=== PATIENT | female | born 1950 | race Caucasian/White ===

== ENCOUNTER 2017-02-08 09:01 | Observation (INO) | payer MEDICARE, OTHER ==
[2017-02-08] MEDS ORDERED: KETOROLAC TROMETHAMINE 30 MG/ML VIAL ONE (09:15)
[2017-02-08] MEDS ORDERED: KETOROLAC TROMETHAMINE 30 MG/ML VIAL IV ONE (09:15)
[2017-02-08] MEDS ORDERED: NORMAL SALINE 1,000 ML IV ONE (09:15)
[2017-02-08 09:27] LABS: Hematocrit 43.7 % (37.0-47.0); Hemoglobin 14.4 gm/dL (12.5-16.0); Mean Cell Volume 86.9 fl (78-100); Mean Corpuscular Hemoglobin 28.6 pg (27-31); Mean Platelet Volume 9.5 fl (6.0-9.5); Platelet Count 329 K/mm3 (150-450); Red Blood Count 5.03 M/mm3 (4.2-5.4); Red Cell Distribution Width 12.6 % (11.5-14.0); White Blood Count 9.4 K/mm3 (4.0-10.5)
[2017-02-08 09:33] LABS: Urine Bilirubin 1 mg/dl (NEGATIVE); Urine Blood 250 /ul (NEGATIVE); Urine Ketone Negative (NEGATIVE); Urine Nitrite Negative (NEGATIVE); Urine Protein 100 mg/dL (NEGATIVE); Urine Specific Gravity >=1.030 SP.GR. (1.005-1.010); Urine Urobilinogen Normal (NORMAL)
[2017-02-08] MEDS ORDERED: ONDANSETRON HCL/PF 2 MG/ML VIAL IV ONE ×2 (09:33→10:44)
[2017-02-08 09:40] LABS: Urine Amorphous Sediment Moderate - 2+ (NONE-FEW); Urine Appearance Cloudy; Urine Bacteria TRACE; Urine Color Dark Yellow; Urine RBC >50 /hpf (0-5); Urine WBC 0-5 /hpf (0-5)
[2017-02-08 09:51] LABS: Albumin * 3.8 gm/dl (3.4-5.0); Anion Gap 15.4 mmol/L (6.8-13.8); BUN/Creatinine Ratio 26.7 (9.0-21.6); Bilirubin, Total 0.6 mg/dL (0.0-1.1); Ca. Corrected For Albumin 8.9 mg/dL (8.4-10.2); Calcium * 9.1 mg/dL (7.9-10.9); Carbon Dioxide 24.9 mmol/L (24-32.6); Potassium 4.3 mmol/L (3.4-4.6); Total Protein 7.7 gm/dL (6.2-8.2)
[2017-02-08] MEDS ORDERED: HYDROmorphone HCL 1 MG/ML DISP.SYRIN IV ONE (10:27)
[2017-02-08] MEDS ORDERED: TAMSULOSIN HCL 0.4 MG CAP.SR.24H PO ONE ×2 (10:27→10:39)
[2017-02-08] MEDS ORDERED: HYDROmorphone HCL 1 MG/ML DISP.SYRIN ONE (10:39)
--- NOTE | 2017-02-08 10:43 | ERNOTE ---
Abdominal HPI - General Chief Complaint: Abdominal Pain Time Seen by Provider: 02/08/17 09:32 Source: patient Exam Limitations: no limitations - Immun/Allergies/Home Medications Immunizatons: IMMUNIZATION HX Immunizations Up to Date Yes History of Influenza Vaccine Yes Hx Pneumococcal Vaccination No Allergies/Adverse Reactions: Allergies No Known Allergies Allergy (Verified 09/24/13 07:07) Home Medications: HOME MEDICATIONS Citalopram Hydrobromide [Celexa] 20 mg PO DAILY 12/05/12 [Last Taken 01/12/17] LORazepam [Ativan] 0.5 mg PO Q6H PRN 12/05/12 [Last Taken Unknown] Levothyroxine Sodium [Tirosint] 50 mcg PO DAILY 12/05/12 [Last Taken 12/05/12] Zolpidem Tartrate [Ambien] 10 mg PO HS 12/05/12 [Last Taken 01/12/17] - History of Present Illness Narrative: Patient presents from her doctor's office complaining of severe right flank and right lower quadrant abdominal pain. She states that the pain started last night is extremely colicky in nature and was initially nauseated and is now just turned into [id number] pain. At this juncture there was still some severe component when she came over from her physician's office. Timing: constant Quality: severe Activities at Onset: none Associated Symptoms: Present: nausea Prior Abdominal Problems: Present: none Prior Treatment: Present: recently seen, treated by physician Review of Systems - Review of Systems Constitutional: Present: See HPI EYE: Present: no symptoms reported ENT: Present: no symptoms reported Respiratory: Present: no symptoms reported Cardiology: Present: no symptoms reported Gastrointestinal/Abdominal: Present: nausea Genitourinary: Present: pain - principally in the right flank radiating down into the right lower abdomen Musculoskeletal: Present: no symptoms reported Skin: Present: no symptoms reported Neurological: Present: no symptoms reported Endocrine: Present: no symptoms reported Hematologic/Lymphatic: Present: no symptoms reported Psych: Present: no symptoms reported - Patient's Past Medical History Patient History - Medical: Anxiety, Depression, GERD Patient History - Cardiac/Respiratory: No pertinent hx Patient History - Cancer: No Hx of Cancer Patient History - Surgical Procedures: Cholecystectomy, Colonoscopy, EGD, Hysterectomy, Orthopedic Patient History - Other: None LMP (females 10-50): Menopausal - Family History Mother Family History - Medical: Family History - Cardiac/Respiratory: CHF, CVA/Stroke Family History - Cancer: No pertinent family hx Father Family History - Medical: Family History - Cardiac/Respiratory: Coronary Heart Disease, CHF, Myocardial Infarction Family History - Cancer: No pertinent family hx - Social History Living Situations: spouse Abuse History: No History of abuse Psych History: Hx of Anxiety, Hx of Depression, Current tx/ever been on anti- depressants or anti-anxiety meds Smoking Status: Never smoker Alcohol Use: none Drug Use: none - Immunizations Immunizations Up to Date: Yes Hx Pneumococcal Vaccination: No History of Influenza Vaccine: Yes Physical Exam - Physical Exam General Appearance: Present: wd/wn, alert, severe distress Head Exam: Present: normal inspection Eye Exam: Normal inspection: bilateral, PERRL: bilateral Ears, Nose, Throat: Present: normal ENT inspection, H, normal pharynx Neck: Present: normal inspection, nontender Respiratory: Present: no respiratory distress, normal breath sounds, no accessory muscle use, chest nontender, lungs clear Cardiovascular/Chest: Present: regular rate, rhythm, no murmur, normal peripheral pulses Gastrointestinal/Abdominal: Present: normal bowel sounds, nontender, nondistended, soft, no organomegaly Rectal Exam: Present: deferred Back Exam: Present: normal range of motion, CVA tenderness (R) Extremity Exam: Present: normal inspection, non-tender, no edema, normal range of motion Neurological Exam: Present: alert, oriented, normal mood/affect Skin Exam: Present: normal color, warm/dry Lymphatic Exam: Present: no adenopathy ED Progress - Results and Orders Patient's Lab Results:: I have reviewed the patient's lab results. - Vital Signs Patient's Vital Signs:: I have reviewed the patient's vital signs. Vital Signs: Vital Signs 02/08/17 09:08 Temperature 36.6 C Pulse Rate 73 Respiratory 22 H Rate Blood Pressure 213/96 O2 Sat by Pulse 95 Oximetry - CT/Ultrasound CT/Ultrasound Narrative: CT of the abdomen and pelvis was reviewed by me - Progress/Reassessment Chief Complaint: Abdominal Pain Plan - Plan Plan: We're having considerable difficulty controlling the patient's pain and is highly unlikely the patient is going to pass her kidney stone. I spoke with the on-call urologist and he suggested we put the patient in make sure that she is hydrated, pain management, nausea vomiting control and he will take her to surgery in the morning to remove the obstructing kidney stone. Departure - Departure Clinical Impression: Kidney stone on right side Disposition: [facility] Condition: Fair Referrals: Ammy Raymond MD [Primary Care Provider] -
[2017-02-08] MEDS ORDERED: ONDANSETRON HCL/PF 2 MG/ML VIAL ONE (10:44)
[2017-02-08] MEDS ORDERED: HYDROcodone/ACETAMINOPHEN 1 EACH TABLET PO PRN (11:17)
[2017-02-08] MEDS ORDERED: ACETAMINOPHEN 500 MG TABLET PO PRN (11:17)
[2017-02-08] MEDS ORDERED: traMADol HCL 50 MG TABLET PO PRN (11:17)
[2017-02-08] MEDS ORDERED: ONDANSETRON HCL/PF 2 MG/ML VIAL IV PRN (11:17)
[2017-02-08] MEDS ORDERED: LORazepam 0.5 MG TABLET PO PRN (11:19)
[2017-02-08] MEDS ORDERED: CITALOPRAM HYDROBROMIDE 20 MG TABLET PO SCH ×2 (11:30→21:00)
[2017-02-08] MEDS ORDERED: LIDOCAINE HCL 20 ML UDC PO ONE (12:00)
[2017-02-08] MEDS ORDERED: LEVOTHYROXINE SODIUM 50 MCG TABLET PO SCH ×2 (12:00→21:00)
[2017-02-08] MEDS ORDERED: MAG HYDROX/ALUMINUM HYD/SIMETH 30 ML UDC PO ONE (12:00)
[2017-02-08] MEDS: PANTOPRAZOLE SODIUM 40 MG TABLET.EC PO SCH (12:10)
[2017-02-08] MEDS: HYDROmorphone HCL 1 MG/ML DISP.SYRIN IV PRN ×3 (13:12→19:18)
[2017-02-08] MEDS: NORMAL SALINE 1,000 ML IV PRN (13:19)
--- NOTE | 2017-02-08 15:05 | CONS ---
[facility] - General Date of Service: 02/09/17 Narrative: 66-year-old female with hematuria in significant right flank pain discovered on CT to have a large distal right ureteral calculus. Stone is several centimeters from ureteric orifice. Was admitted for IV pain and nausea control. I am consulted for recommendations and possible treatment.she has been nothing by mouth.She has not managed to pass stone overnight. She has had a prior stone which she successfully passed. No prior stone surgery. Location: Right flank Duration: Days Severity/Stage: Was severe now mild to moderate Associated Sx's: Nausea and hematuria Modifying factors: Better with IV pain and nausea medicine Quality: Colicky Past medical history: Includes hypothyroidism, anxiety and depression Past surgical history: Right hip replacement, cholecystectomy, hysterectomy Family history: Noncontributory Social history: Nonsmoker Review of systems: General: No fevers, some nausea, right-sided flank pain as above Lungs: No SOB Heart: No chest pain GI: No diarrhea, no constipation Musculoskeletal: Has chronic back pain at baseline, right-sided hip prosthesis Gynecologic: Prior hysterectomy : Some gross hematuria 14 point review of systems otherwise negative, important positives noted. - History of Present Illness Allergies/Adverse Reactions: Allergies No Known Allergies Allergy (Verified 02/08/17 11:55) Home Medications: Home Medications Medication Instructions Recorded Last Taken Citalopram Hydrobromide [Celexa] 20 mg PO HS 12/05/12 01/12/17 LORazepam [Ativan] 0.5 mg PO Q6H PRN 12/05/12 Unknown Levothyroxine Sodium [Tirosint] 50 mcg PO HS 12/05/12 12/05/12 Zolpidem Tartrate [Ambien] 10 mg PO HS 12/05/12 01/12/17 - Patient's Past Medical History Patient History - Medical: Anxiety, Depression, GERD Patient History - Cardiac/Respiratory: No pertinent hx Patient History - Cancer: No Hx of Cancer Patient History - Surgical Procedures: Cholecystectomy, Colonoscopy, EGD, Hysterectomy, Orthopedic Patient History - Other: None LMP (females 10-50): Menopausal - Family History Mother Family History - Medical: Family History - Cardiac/Respiratory: CHF, CVA/Stroke Family History - Cancer: No pertinent family hx Father Family History - Medical: Family History - Cardiac/Respiratory: Coronary Heart Disease, CHF, Myocardial Infarction Family History - Cancer: No pertinent family hx - Social History Living Situations: home Abuse History: No History of abuse Psych History: Hx of Anxiety, Hx of Depression, Current tx/ever been on anti- depressants or anti-anxiety meds Smoking Status: Never smoker Have you smoked in the past 12 months: No Do you dip or chew tobacco: No Patient requests Smoking Cessation Consult: No Alcohol Use: none Drug Use: none - Immunizations Immunizations Up to Date: Yes Hx Pneumococcal Vaccination: No History of Influenza Vaccine: Yes Procedures ANESTH INJECT-SPIN CANAL (06/20/13) APPLICATION OF SPLINT (10/20/02) CLOSURE SKIN & SUBCUTANEOUS NEC (02/12/99) COLONOSCOPY (10/15/05) DRESSING OF WOUND NEC (11/21/02) ESOPHAGOGASTRODUODENOSCOPY [EGD] W/CLOSED BIOPSY (10/27/11) INJECT STEROID (06/20/13) INJECTION INTO JOINT (09/05/12) LAPAROSCOPIC CHOLECYSTECTOMY (10/27/11) SPINAL CANAL INJECT NEC (06/20/13) TOTAL HIP REPLACEMENT (09/24/13) X-RAY NEC AND NOS (09/05/12) Medications - Medications Current Medications: Current Medications Hydromorphone HCl (Dilaudid) 1 mg IV Q2H PRN PRN Reason: Severe Pain Stop: 03/10/17 11:18 Last Admin: 02/08/17 13:12 Dose: 1 mg Sodium Chloride (Sodium Chloride 0.9%) 1,000 mls @ 75 mls/hr IV .[id number] PRN PRN Reason: HYDRATION Stop: 03/10/17 11:18 Last Admin: 02/08/17 13:19 Dose: 75 mls/hr Pantoprazole Sodium (Protonix) 40 mg PO DAILY@0700 AKSHAT Stop: 03/10/17 11:46 Last Admin: 02/08/17 12:10 Dose: 40 mg Physical Examination - Exam Narrative: General: Nontoxic, moderate distress, not in severe renal colic currently Psych: Alert and oriented x3 HEENT: EOM grossly intact Lungs: Respirations unlabored, clear Abdomen: Obese otherwise benign Neuro: no focal deficits Extremities: Moves all 4 without difficulty Heart: Regular Skin: No obvious rashes Back: No true CVA tenderness, some discomfort on right side to palpation Vital Signs: Vital Signs - Last Taken Temp 97.2 F L 02/08/17 14:24 Pulse 82 02/08/17 14:24 Resp 20 02/08/17 14:24 BP 111/55 02/08/17 14:24 Pulse Ox 93 02/08/17 14:24 O2 Oxygen Delivery Method Room Air - Results and Findings: Narrative: #1 Right stone: Stone fairly large and still has a way to go to get the bladder , probability of passage pretty low. She has been symptomatic despite IV pain and nausea medicine. Options include trial of passage versus surgical intervention. Patient electing to proceed with surgical intervention. Risks including bleeding/infection/injury to ureter including stricture/evulsion /perforation. Typical stent symptoms discussed. Plan is to proceed with formal cystoscopy and retrogrades with attempted right ureteroscopy with laser/basket depending on intraoperative findings. Understands possibility may stent and fight another day if ureter narrow or evidence of infection. Willing to proceed. She has been nothing by mouth. # 2Gross hematuria: Likely related to stone. Obviously we'll inspect bladder at time of stone procedure.
--- NOTE | 2017-02-08 20:43 | HP ---
Chief Complaint - Chief Complaint Date of Service: 02/08/17 Time of Service: 20:42 Chief Complaint: flank pain and hematuria History of Present Illness: 66 years old female adm to the hospital with reports of hematuria and right flank pain radiating to lower abdomen. PMH significant for kidney stones, anxiety, depression, diverticulosis, constipation, insomnia, hypothyroidism and panic attack. Pt stated she was awaken with pain at 2am, she went to her PCP Dr. Raymond and was sent to the ER. Pt stated a year ago she pass kidney stones while in the ER, she was seen by urologist in [place].Since then she had no other episode. Today she denies fever, chills,nausea or vomiting. in ER, CT ABD showed right sided obstructing calculi 5.4mm x7.7mm right distal ureter. model maker urologist plan to see pt tomorrow. will adm for pain control and keep hydrated. Plan of care discussed with pt she verbalized understanding and agrees. - Patient's Past Medical History Patient History - Medical: Anxiety, Depression, GERD, Hypothyroidism Patient History - Cardiac/Respiratory: No pertinent hx Patient History - Cancer: No Hx of Cancer Patient History - Surgical Procedures: Cholecystectomy, Colonoscopy, EGD, Hysterectomy, Total Hip Replacement - right, Orthopedic Patient History - Other: None LMP (females 10-50): Menopausal - Family History Mother Family History - Medical: Family History - Cardiac/Respiratory: CHF, CVA/Stroke Family History - Cancer: No pertinent family hx Father Family History - Medical: Family History - Cardiac/Respiratory: Coronary Heart Disease, CHF, Myocardial Infarction Family History - Cancer: No pertinent family hx - Social History Living Situations: spouse Abuse History: No History of abuse Psych History: Hx of Anxiety, Hx of Depression, Current tx/ever been on anti- depressants or anti-anxiety meds Smoking Status: Never smoker Have you smoked in the past 12 months: No Do you dip or chew tobacco: No Patient requests Smoking Cessation Consult: No Alcohol Use: none Drug Use: none - Immunizations Immunizations Up to Date: Yes Hx Pneumococcal Vaccination: No History of Influenza Vaccine: Yes Review Of Systems (GEN) - Review of Systems Generalized/Overall Review: Present: No Symptoms Reported EENTM: Present: No Symptoms Reported Respiratory: Present: No Symptoms Reported Cardiac: Present: No Symptoms Reported Abdominal: Present: Abdominal Pain - dull pain radiating to lower back Genitourinary: Present: Hematuria, Other - flank pain Musculoskeletal: Present: Back Pain Neurological: Present: Anxiety Skin: Present: No Symptoms Reported Endocrine: Present: No Symptoms Reported Immunizations: IMMUNIZATION HX Immunizations Up to Date Yes History of Influenza Vaccine Yes Hx Pneumococcal Vaccination No Allergies/Adverse Reactions: Allergies Allergy/AdvReac Type Severity Reaction Status Date / Time No Known Allergies Allergy Verified 02/08/17 11:55 Home Medications: HOME MEDICATIONS Citalopram Hydrobromide [Celexa] 20 mg PO HS 12/05/12 [Last Taken 01/12/17] LORazepam [Ativan] 0.5 mg PO Q6H PRN 12/05/12 [Last Taken Unknown] Levothyroxine Sodium [Tirosint] 50 mcg PO HS 12/05/12 [Last Taken 12/05/12] Zolpidem Tartrate [Ambien] 10 mg PO HS 12/05/12 [Last Taken 01/12/17] Exam - Exam Vital Signs: Vital Signs - Last Taken Temp 36.5 C 02/08/17 18:47 Pulse 71 02/08/17 18:47 Resp 20 02/08/17 18:47 BP 122/68 02/08/17 18:47 Pulse Ox 94 02/08/17 18:47 Constitutional: Present: Alert, Oriented x3, Cooperative, Well developed, No distress ENT Exam: Present: normal ENT inspection Eye Exam: bilateral eye: normal inspection Neck: Present: full range of motion Back Exam: Present: normal inspection Breasts: Present: Exam deferred Respiratory: Present: chest non-tender, lungs clear, normal breath sounds, no respiratory distress Cardiovascular/Chest: Present: normal peripheral pulses, regular rate, rhythm, no chest tenderness Peripheral Pulses: dorsalis-pedis (R): 3+, dorsalis-pedis (L): 3+ Abdomen: Present: Normal bowel sounds, soft, nontender, nondistended, no rebound tenderness /Rectal: Present: Other - hematuria Extremity: Present: normal range of motion, non-tender Skin Exam: Present: normal color, warm/dry Lymphatic: Present: no adenopathy Neurologic: Present: oriented x 3 Appearance: Present: appropriate appearance Eye contact: Present: cooperative, good eye contact Thoughts: Present: normal thought pattern Diagnostic Studies: Laboratory Results WBC 9.4 K/mm3 (4.0-10.5) 02/08/17 09: RBC 5.03 M/mm3 (4.2-5.4) 02/08/17 09: Hgb 14.4 gm/dL (12.5-16.0) 02/08/17 09: Hct 43.7 % (37.0-47.0) 02/08/17 09: MCV 86.9 fl (78-100) 02/08/17 09: MCH 28.6 pg (27-31) 02/08/17 09: MCHC 33.0 g/dl (32-36) 02/08/17 09: RDW 12.6 % (11.5-14.0) 02/08/17: Plt Count 329 K/mm3 (150-450) 02/08/17 09: MPV 9.5 fl (6.0-9.5) 02/08/17 09: Immature Gran % (Auto) 0.30 % (0.001-0.429) 02/08/17 09: Immature Gran # (Auto) 0.03 K/mm3 (0.000-0.0310) 02/08/17 09: Neutrophils % 74.0 % (42-75.0) 02/08/17 09: Lymphocytes % 15.0 % (20-51) L 02/08/17 09:23 Monocytes % 7.7 % (0.0-9) 02/08/17 09: Eosinophils % 2.3 % (0.0-3.0) 02/08/17 09: Basophils % 0.7 % (0.0-1.0) 02/08/17 09: Nucleated RBC % 0.0 k/mm3 (0-1) 02/08/17 09: Neutrophils # 7.0 K/mm3 (1.3-6.0) H 02/08/17 09: Lymphocytes # 1.4 k/mm3 (1.5-3.5) L 02/08/17 09: Monocytes # 0.7 k/mm3 (0.0-1.0) 02/08/17 09: Eosinophils # 0.2 k/mm3 (0.0-0.7) 02/08/17 09:23 Absolute Basophils 0.1 k/mm3 (0.0-0.1) 02/08/17 09:23 Sodium 138 mmol/L (132-142) 02/08/17 09:23 Plasma Sodium 138 mmol/L (130-142) 02/08/17 09:23 Potassium 4.3 mmol/L (3.4-4.6) 02/08/17 09:23 Chloride 102 mmol/L (97-106) 02/08/17 09:23 Carbon Dioxide 24.9 mmol/L (24-32.6) 02/08/17 09:23 Anion Gap 15.4 mmol/L (6.8-13.8) H 02/08/17 09:23 BUN 20 mg/dL (3-23) 02/08/17 09:23 Creatinine 0.75 mg/dL (0.4-1.4) 02/08/17 09:23 Est GFR (Non-Af Amer) 82 mL/min (60-130) 02/08/17 09:23 BUN/Creatinine Ratio 26.7 (9.0-21.6) H 02/08/17 09:23 Random Glucose 101 mg/dL (70-110) 02/08/17 09:23 Calcium 9.1 mg/dL (7.9-10.9) 02/08/17 09:23 Calcium Adj for Albumin 8.9 mg/dL (8.4-10.2) 02/08/17 09:23 Total Bilirubin 0.6 mg/dL (0.0-1.1) 02/08/17 09:23 AST 23 U/L (0-48) 02/08/17 09:23 ALT 24 U/L (19-67) 02/08/17 09:23 Alkaline Phosphatase 94 U/L (50-170) 02/08/17 09:23 Total Protein 7.7 gm/dL (6.2-8.2) 02/08/17 09:23 Albumin 3.8 gm/dl (3.4-5.0) 02/08/17 09:23 Urine Color Dark yellow 02/08/17 09:00 Urine Appearance Cloudy 02/08/17 09:00 Urine pH 5.0 pH (5.0-7.0) 02/08/17 09:00 Ur Specific [place] >=1.030 SP.GR. (1.005-1.010) 02/08/17 09:00 Urine Protein 100 mg/dL (NEGATIVE) H 02/08/17 09:00 Urine Glucose (UA) Negative mg/dL (NEGATIVE) 02/08/17 09:00 Urine Ketones Negative mg/dL (NEGATIVE) 02/08/17 09:00 Urine Blood 250 /ul (NEGATIVE) H 02/08/17 09:00 Urine Nitrate Negative (NEGATIVE) 02/08/17 09:00 Urine Bilirubin 1 mg/dl (NEGATIVE) H 02/08/17 09:00 Urine Ictotest Negative (NEGATIVE) 02/08/17 09:00 Prot Sulfosalicylic Acd 3+ mg/dL (0) H 02/08/17 09:00 Urine Urobilinogen Normal EU/dl (NORMAL) 02/08/17 09:00 Ur Leukocyte Esterase 25 /ul (NEGATIVE) H 02/08/17 09:00 Urine RBC >50 /hpf (0-5) H 02/08/17 09:00 Urine WBC 0-5 /hpf (0-5) 02/08/17 09:00 Ur Epithelial Cells None seen /hpf (0-5) 02/08/17 09:00 Amorphous Sediment Moderate - 2+ (NONE-FEW) H 02/08/17 09:00 Urine Bacteria Trace (NONE) 02/08/17 09:00 Urine Culture Comments Culture to follow 02/08/17 09:00 CT ABD: right sided obstructive uropathy calcification 5.4mm x7.7mm right distal ureter Assessment/Plan - Narrative Narrative: Renal calculi: Seen on CT ABD: right sided obstructive uropathy calcification 5.4mm x7.7mm right distal ureter pt with reported history of renal calculi that she pass 1 yrs ago Flomax x 1 given in ER Urine culture pending and Continue with cipro Urologist consulted and will follow. Continue with oral and IV hydration Strain all voided urine IV dilaudid, norco for discomfort. UTI vs pyelonephritis - likely from renal calculi obstruction Continue with cipro Urine culture pending Anxiety May resume home medications PRN Insomnia Resume ambien Code status : full DVT ppx: SCD /TEDs GI ppx:Protonix Time 36 minutes - Assessment/Plan (1) Kidney stone on right side Problem: Acute (2) Anxiety Problem: Chronic
[2017-02-08] MEDS ORDERED: ZOLPIDEM TARTRATE 10 MG TABLET PO SCH (21:00)
[2017-02-09] MEDS: HYDROmorphone HCL 1 MG/ML DISP.SYRIN IV PRN ×2 (01:51→04:58)
[2017-02-09] MEDS: NORMAL SALINE 1,000 ML IV PRN ×2 (01:51→12:50)
[2017-02-09] MEDS: PANTOPRAZOLE SODIUM 40 MG TABLET.EC PO SCH (07:42)
[2017-02-09] MEDS ORDERED: CIPROFLOXACIN IN 5 % DEXTROSE 400 MG/200 ML BAG IV SCH (11:00)
[2017-02-09] MEDS ORDERED: RINGER'S SOLUTION,LACTATED 1,000 ML IV ONE (13:10)
--- NOTE | 2017-02-09 13:50 | OR ---
Operative Report - Dictated Report Narrative: Location: Main OR Anesthesia: General Surgeon: Dr. Sotomayor Preoperative diagnosis: Right distal ureteral stone(s) Postoperative diagnosis: Same Procedure: #1 Cystoscopy with Bilateral retrograde pyelograms #2 Right flexible ureteroscopy with holmium laser lithotripsy 6x26 double j stent Indications: 66-year-old female symptomatic right stone fairly large. Failed conservative measures. Discussed options and elected to proceed with above- mentioned procedure. Description: Consent obtained. Patient brought to the operating room where general endotracheal anesthesia was induced. Placed in the dorsal lithotomy position. Prepped and draped. Timeout taken. Rigid cystoscope introduced into the bladder with ease and quick cystoscopy revealed no tumors, stones or suspicious lesions . Bilateral retrogrades obtained and interpreted by Dr. Snyder. Left ureter identified intubated with 5 [place] catheter and left retrograde obtained. 5-7 mL of Isovue was injected. Distal, mid and proximal ureter delicate without filling defects or hydronephrosis. Proximal collecting system nonhydronephrotic, delicate calyces, no filling defects. Essentially normal retrograde. Prompt drainage upon removal of catheter. . Right ureter identified intubated with 5 [place] catheter and right retrograde obtained. 5-7 mL of Isovue was injected. Distal ureter was normal caliber other than an narrowed intramural portion up until the pelvic vessels were a large shadowing filling defect consistent with known location of stone. Contrast bypass stone ureter behind that hydronephrotic. A little bit of tortuosity at the level of the UPJ and the upper collecting system was also hydronephrotic. The stone seen on CT was not visible on the retrograde up in the kidney. Super Stiff guidewire was advanced under fluoroscopic guidance. Dual lumen catheter was used to dilate the intramural portion of the ureter which was a little snug but I was able to bypass easily. Bentson wire advanced and secured as a safety wire. Flexible ureteroscope was then used and advanced into the ureter over the Super Stiff wire. Stone was encountered . 200 micron laser fiber was used. Energy of 0.2-0.4 joules and a rate of 40 hertz was used to fragment the stone into submillimeter pieces. Majority exited ureter in the bladder. Intramural portion of ureter was pretty narrow but again majority of pieces bypassed. There are probably some pieces that still have to pass. Once stone was treated over the safety wire a readvanced the 5 [place] catheter and injected additional contrast to outline the collecting system. Again the ureter was nice and dilated all the way until the intramural portion were caliber decreased. There were no obvious persistent shadowing filling defects and there did appear to be drainage alongside the catheter. Wire replaced and 6 x 26 double-J stent deployed using fluoroscopic guidance Bladder was drained. Specimen was obtained and sent for analysis. Specimen: Stone was sent EBL: 5 ml Condition: tolerated procedure Important findings: Successfully treated distal right stone. There remains a 3- 4 mm right renal stone that was not easily visible on today's x-ray. Follow-up: I will see her next Tuesday in [place] for flexible cystoscopy and stent removal, no anesthesia, in the OR. She should start her levofloxacin if fevers or the evening before the procedure. If she is miserable can call the office and I can remove in [place] Tuesday or Tuesday but probably better if she waits the Tuesday. Patient can go home later today. I put prescriptions on the chart. Somebody should call OR scheduling and place patient on for procedure. Should also notify my office for us to send orders.
--- NOTE | 2017-02-09 19:15 | DS ---
(1) Obstructive nephropathy Problem: Acute (2) Nephrolithiasis Problem: Acute (3) Kidney stone on right side Problem: Acute Description of Stay: ADMISSION DATE: 02/08/2017 DISCHARGE DATE: 02/09/2017 ADMISSION HPI by LIZETH Au: 66 years old female adm to the hospital with reports of hematuria and right flank pain radiating to lower abdomen. PMH significant for kidney stones, anxiety, depression, diverticulosis, constipation, insomnia, hypothyroidism and panic attack. Pt stated she was awaken with pain at 2am, she went to her PCP Dr. Raymond and was sent to the ER. Pt stated a year ago she pass kidney stones while in the ER, she was seen by urologist in [place].Since then she had no other episode. Today she denies fever, chills,nausea or vomiting. in ER, CT ABD showed right sided obstructing calculi 5.4mm x7.7mm right distal ureter. scallop binder urologist plan to see pt tomorrow. will adm for pain control and keep hydrated. Plan of care discussed with pt she verbalized understanding and agrees. HOSPITAL COURSE: The patient was admitted to the hospital for a right-sided obstructive kidney stone. Patient was unable to pass the stone on her own so she underwent a cystoscopy with bilateral retrograde pyelograms, right flexible ureteroscopy with lithotripsy and stent placement by Dr. Campbell. The patient tolerated the procedure well and was discharged home in stable condition. Stone composition was 20% calcium oxalate dihydrate and 80% calcium oxalate monohydrate FOLLOW-UP APPOINTMENTS: -Follow-up with PCP within 2 weeks -Follow-up with Urologist, Dr. Campbell, 02/16/2017 RADIOLOGY REPORTS: CT of the abdomen and pelvis without contrast using renal stone CT protocol on 02/08/2017 showed: 1. Right-sided obstructive uropathy caused by a calcification (5.4 x 7.7 mm) within the right distal ureter. 2. Additional intrarenal calcifications of the right kidney. Procedures Performed: see notes below List Procedures: Location: Main OR Anesthesia: General Surgeon: Dr. Sotomayor Preoperative diagnosis: Right distal ureteral stone(s) Postoperative diagnosis: Same Procedure: #1 Cystoscopy with Bilateral retrograde pyelograms #2 Right flexible ureteroscopy with holmium laser lithotripsy 6x26 double j stent Indications: 66-year-old female symptomatic right stone fairly large. Failed conservative measures. Discussed options and elected to proceed with above- mentioned procedure. Description: Consent obtained. Patient brought to the operating room where general endotracheal anesthesia was induced. Placed in the dorsal lithotomy position. Prepped and draped. Timeout taken. Rigid cystoscope introduced into the bladder with ease and quick cystoscopy revealed no tumors, stones or suspicious lesions . Bilateral retrogrades obtained and interpreted by Dr. Snyder. Left ureter identified intubated with 5 Tristanian catheter and left retrograde obtained. 5-7 mL of Isovue was injected. Distal, mid and proximal ureter delicate without filling defects or hydronephrosis. Proximal collecting system nonhydronephrotic, delicate calyces, no filling defects. Essentially normal retrograde. Prompt drainage upon removal of catheter. . Right ureter identified intubated with 5 Tristanian catheter and right retrograde obtained. 5-7 mL of Isovue was injected. Distal ureter was normal caliber other than an narrowed intramural portion up until the pelvic vessels were a large shadowing filling defect consistent with known location of stone. Contrast bypass stone ureter behind that hydronephrotic. A little bit of tortuosity at the level of the UPJ and the upper collecting system was also hydronephrotic. The stone seen on CT was not visible on the retrograde up in the kidney. Super Stiff guidewire was advanced under fluoroscopic guidance. Dual lumen catheter was used to dilate the intramural portion of the ureter which was a little snug but I was able to bypass easily. Bentson wire advanced and secured as a safety wire. Flexible ureteroscope was then used and advanced into the ureter over the Super Stiff wire. Stone was encountered . 200 micron laser fiber was used. Energy of 0.2-0.4 joules and a rate of 40 hertz was used to fragment the stone into submillimeter pieces. Majority exited ureter in the bladder. Intramural portion of ureter was pretty narrow but again majority of pieces bypassed. There are probably some pieces that still have to pass. Once stone was treated over the safety wire a readvanced the 5 Tristanian catheter and injected additional contrast to outline the collecting system. Again the ureter was nice and dilated all the way until the intramural portion were caliber decreased. There were no obvious persistent shadowing filling defects and there did appear to be drainage alongside the catheter. Wire replaced and 6 x 26 double-J stent deployed using fluoroscopic guidance Bladder was drained. Specimen was obtained and sent for analysis. Specimen: Stone was sent EBL: 5 ml Condition: tolerated procedure Important findings: Successfully treated distal right stone. There remains a 3- 4 mm right renal stone that was not easily visible on today's x-ray. Follow-up: I will see her next Tuesday in [place] for flexible cystoscopy and stent removal, no anesthesia, in the OR. She should start her levofloxacin if fevers or the evening before the procedure. If she is miserable can call the office and I can remove in [place] Tuesday or Tuesday but probably better if she waits the Tuesday. Patient can go home later today. I put prescriptions on the chart. Somebody should call OR scheduling and place patient on for procedure. Should also notify my office for us to send orders. Discharge Disposition: Home self care Disposition: Home self-care Condition: Stable Discharge Activity: Activity as tolerated Discharge Diet: General/regular food, Resume usual diet Referrals: Ammy Raymond MD [Primary Care Provider] - Problem Oriented Discharge Instructions to Patient/Family: Kidney Stones, Easy- to-Read Additional Patient Instructions (free text): Please make TCM following discharge, if applicable. Thank you! Jimena at ext: [phone]. Follow-up with PCP within 2 weeks Complete Home Medications List: Complete Home Medication List: Citalopram Hydrobromide [Celexa] 20 mg PO HS 12/05/12 Levothyroxine Sodium [Tirosint] 50 mcg PO HS 12/05/12 Zolpidem Tartrate [Ambien] 10 mg PO HS 12/05/12 LORazepam [Ativan] 0.5 mg PO Q6H PRN 02/15/17 Naproxen Sodium [Aleve] 220 mg PO BID PRN 02/15/17
[2017-02-09 19:29] VITALS: BP 151/76
[2017-02-13 14:31] LABS: Stone Composition 2 DNR
== END 2017-02-09 20:05 | disposition home or self-care (01) ==
LOC: ER 09:01 → MS 10:39
PROVIDERS: ADMIT Internal Medicine; ATTEND Internal Medicine
PROC: 0T768DZ Dilation of Right Ureter with Intraluminal Device, Via Natural or Artificial Opening Endoscopic (ICD-10-PCS; 2017-02-09)
PROC: BT14YZZ Fluoroscopy of Kidneys, Ureters and Bladder using Other Contrast (ICD-10-PCS; 2017-02-09)
PROC: 0TF68ZZ Fragmentation in Right Ureter, Via Natural or Artificial Opening Endoscopic (ICD-10-PCS; principal; 2017-02-09 13:00)
DX: N13.2 Hydronephrosis with renal and ureteral calculous obstruction (principal); Z87.442 Personal history of urinary calculi; F41.8 Other specified anxiety disorders; K57.90 Diverticulosis of intestine, part unspecified, without perforation or abscess without bleeding; K21.9 Gastro-esophageal reflux disease without esophagitis; G47.00 Insomnia, unspecified; E03.9 Hypothyroidism, unspecified; Z96.641 Presence of right artificial hip joint
CPT/HCPCS: 36415; 52356; 74176; 74420; 76000; 80053; 81001; 82365; 85025; 87081; 87086; 93005; 96365; 96374; 96375; 96376; 99285; G0378; J2405

== ENCOUNTER 2017-02-16 12:56 | Day surgery (SDC) | payer MEDICARE, OTHER ==
[~2017-02-16 12:56] MED LIST: NORMAL SALINE 1,000 ML IV PRN
--- NOTE | 2017-02-16 15:10 | OR ---
Operative Report - Dictated Report Narrative: Preoperative diagnosis: Indwelling stent Postoperative diagnosis: Same Anesthesia: None Procedure: Flexible cystoscopy with stent removal Indications: Indwelling stent Descritpion: Consent obtained. Patient prepped and drapped. Lidocaine jelly used to anesthetize urethra. Flexible scope inserted and navigated to bladder. Stent identified, grasped and pulled per urethra. Patient tolerated. EBL: 0 ml Specimen: None Condition: Tolerated procedure Follow-up: 3 months with K[facility]. Sooner if trouble
[2017-02-16 15:28] VITALS: BP 154/79
== END 2017-02-16 12:57 | disposition home or self-care (01) ==
LOC: AMB 12:56
PROVIDERS: ATTEND Urology
PROC: 0TP98DZ Removal of Intraluminal Device from Ureter, Via Natural or Artificial Opening Endoscopic (ICD-10-PCS; principal; 2017-02-16 15:35)
DX: Z46.6 Encounter for fitting and adjustment of urinary device (principal); E03.9 Hypothyroidism, unspecified; K21.9 Gastro-esophageal reflux disease without esophagitis; F32.9 Major depressive disorder, single episode, unspecified; F41.9 Anxiety disorder, unspecified; Z68.33 Body mass index [BMI] 33.0-33.9, adult